=== PATIENT | female | born 2000 | race Caucasian/White ===

== ENCOUNTER 2019-05-12 16:14 | Emergency (ER) | payer OTHER ==
[~2019-05-12] VITALS: Ht 172.7 cm; Wt 72.6 kg
[~2019-05-12 16:14] MED LIST: LO LOESTRIN FE1 EACH PO; NORTRIPTYLINE H50 MG PO
--- OUTSIDE RECORDS SUMMARY | 2019-05-12 16:18 | XMS REPORT | Summary of Care ---
Author Author Sara Torres M.A. Unknown Address [facility] Phone Unavailable Care Team Providers Care Training Personnel Supervisor Name Role Phone YOANDY Junior, FABIAN Unavailable Unavailable YOANDY CHAVEZ, FABIAN LEE Unavailable Unavailable Unavailable Unavailable Functional Status Name Dates Details Functional status health issues are not documented Status: Name Dates Details Cognitive status health issues are not documented Status: Problems Name Dates Details Encounter to establish care (V65.8, Z76.89) Status: Active Screening for diabetes mellitus (V77.1, Z13.1) Status: Active Screening for thyroid disorder (V77.0, Z13.29) Status: Active Flu vaccine need (V04.81, Z23) Status: Active Overweight (BMI 25.0-29.9) Status: Active Depression (311, F32.9) Status: Active PCOS (polycystic ovarian syndrome) (256.4, E28.2) Status: Active Oligomenorrhea (626.1, N91.5) Status: Active Medications Name Dates Details medroxyPROGESTERone Acetate 10 MG Oral Tablet TAKE 1 tab every day for 10 days. Quantity: 10 FABIAN PITT M.D. * Start : 29-Jan-2019 Active Tri-Legest Fe 1-20/1-30/1-35 MG-MCG Oral Tablet TAKE 1 TABLET DAILY DIRECTED. * Quantity: 1 Refills: 3 CAROLYNN PITT M.D.IKA * Start : 29-Jan-2019 Active 28 Tablet Pack Allergies and Adverse Reactions Name Dates Details Bactrim TABS (Allergy) Status: Active Past Medical History Name Dates Details History of PCOS (V13.29, Z87.42) Status: Resolved Procedures Procedure Dates Details History of Tympanoplasty Completed Immunization Name Dates Details Fluzone Quadrivalent 0.5 ML Intramuscular Suspension Lot #: [id number] on: 09-Jan-2017 Family History Name Dates Details Family history of diabetes mellitus (V18.0, Z83.3) Status: Active Family history of hypertension (V17.49, Z82.49) Status: Active Name Dates Details Family history of diabetes mellitus (V18.0, Z83.3) Status: Active Social History Name Dates Details - Status: Name Dates Details Never smoked tobacco (finding) Vital Signs Date Test Result Details [id number] Systolic blood pressure 120 mm[Hg] Status: Comments: Location: [facility]; Position: Sitting Diastolic blood pressure 70 mm[Hg] Status: Comments: Location: [facility]; Position: Sitting Body height 67 in Status: Weight 203 lb Status: Body mass index (BMI) [Ratio] 31.79 kg/m2 Status: Body surface area Derived from formula 2.03 m2 Status: Results Date Description Value Details Results not documented Plan of Care Name Dates Details Planned Observations Planned Goals not documented Instructions Name Dates Details Instructions not documented Encounters Appointment; FABIAN PITT M.D. Encounter Diagnosis: Problem not documented On: 25-Oct-2017 14:30 Appointment; FABIAN PITT M.D. Encounter Diagnosis: Problem not documented On: 27-Dec-2017 10:00 Appointment; FABIAN PITT M.D. Encounter Diagnosis: Problem not documented On: 29-Jan-2019 13:45 Appointment; FABIAN PITT M.D. Encounter Diagnosis: Problem not documented On: 16-Apr-2019 15:00
--- OUTSIDE RECORDS SUMMARY | 2019-05-12 16:18 | XMS REPORT | Summary of Care ---
Author Author YOANDY Junior, FABIAN Organization Unknown Address Unknown Phone Unavailable Care Team Providers Care Engraver Ornamental Design Name Role Phone FABIAN PITT M.D. Unavailable Unavailable FABIAN PITT MD Unavailable Unavailable Unavailable Unavailable Functional Status Name [...] (V04.81, Z23) Status: Active Overweight (BMI 25.0-29.9) (278.02, E66.3) Status: Active Depression (311, F32.9) Status: Active PCOS (polycystic ovarian syndrome) (256.4, E28.2) Status: Active Oligomenorrhea (626.1, N91.5) Status: Active Medications Name Dates Details Tri-Sprintec 0.18/0.215/0.25 MG-35 MCG Oral Tablet TAKE 1 TABLET BY MOUTH ONCE DAILY Quantity: 28 CROSS M.D., FABIAN * Start : 25-Oct-2017 Active 28 Tablet Pack medroxyPROGESTERone Acetate 10 MG Oral Tablet TAKE 1 tab every day for 10 days. * Quantity: 10 Refills: 0 YOANDY M.D.FABIAN * Start : 29-Jan-2019 Active Tri-Legest Fe 1-20/1-30/1-35 MG-MCG Oral Tablet TAKE 1 TABLET DAILY DIRECTED. * Quantity: 1 Refills: 3 CROSS M.D., FABIAN * Start : 29-Jan-2019 Active 28 Tablet Pack Allergies and Adverse Reactions Name Dates Details Bactrim TABS (Allergy) Status: Active Past Medical History Name Dates Details History of PCOS (V13.29, Z87.42) Status: Resolved Procedures Procedure Dates Details History of Tympanoplasty Completed Immunization Name Dates Details Fluzone Quadrivalent 0.5 ML Intramuscular Suspension Lot #: [id number] on: 09-Jan-2017 Family History Name Dates Details Family history of diabetes mellitus (V18.0, Z83.3) Status: Active Family history of hypertension (V17.49, Z82.49) Status: Active Name Dates Details Family history of diabetes mellitus (V18.0, Z83.3) Status: Active Social History Name Dates Details - Status: Name Dates Details Never smoker Vital Signs Date Test Result Details [id number] BP Systolic 116 mm[Hg] Status: Comments: Location: [facility]; Position: Sitting BP Diastolic 80 mm[Hg] Status: Comments: Location: [facility]; Position: Sitting Height 67 in Status: Weight 201 lb Status: Body Mass Index Calculated 31.48 kg/m2 Status: Body Surface Area Calculated 2.03 m2 Status: Temperature 98.1 f Status: Comments: Method: Oral Results Date Description Value Details Results not documented Plan of Care Name Dates Details Planned Observations Planned Goals not documented Planned Encounters Appointment; FABIAN PITT M.D. On: 16-Apr-2019 15:00 Interventions Provided Medication Changes* medroxyPROGESTERone Acetate 10 MG Oral Tablet - Start * Tri-Legest Fe 1-20/1-30/1-35 MG-MCG Oral Tablet - Start Discussion/Summary* Oligomenorrhea * -progesterone challenge * -then start OCP diff RX sent to pharmacy * RTC for f/u. Instructions Name Dates Details Instructions not documented Encounters Appointment; FABIAN PITT M.D. Encounter Diagnosis: Problem not documented On: 25-Oct-2017 14:30 Appointment; FABIAN PITT M.D. Encounter Diagnosis: Problem not documented On: 27-Dec-2017 10:00 Appointment; FABIAN PITT M.D. Encounter Diagnosis: Problem not documented On: 29-Jan-2019 13:45
--- OUTSIDE RECORDS SUMMARY | 2019-05-12 16:18 | XMS REPORT | Summary of Care ---
Author Author YOANDY Junior, FABIAN Organization Unknown Address Unknown Phone Unavailable Care Team Providers Care Copy Supervisor Name Role Phone FABIAN PITT M.D. Unavailable [...] Status: Active Depression (311, F32.9) Status: Active Oligomenorrhea (626.1, N91.5) Status: Active PCOS (polycystic ovarian syndrome) (256.4, E28.2) Status: Active Medications Name Dates Details medroxyPROGESTERone Acetate 10 MG Oral Tablet TAKE 1 tab every day for 10 days. Quantity: 10 FABIAN PITT M.D. * Start : 29-Jan-2019 Active Tri-Legest Fe 1-20/1-30/1-35 MG-MCG Oral Tablet TAKE 1 TABLET DAILY DIRECTED. * Quantity: 1 Refills: 3 FABIAN PITT M.D. * Start : 29-Jan-2019 Active 28 Tablet Pack Allergies and Adverse Reactions Name Dates Details Bactrim TABS (Allergy) Status: Active Past Medical History Name Dates Details History of PCOS (V13.29, Z87.42) Status: Resolved Procedures Procedure Dates Details History of Tympanoplasty Completed Immunization Name Dates Details Fluzone Quadrivalent 0.5 ML Intramuscular Suspension Lot #: [id number] on: 09-Jan-2017 Family History Name Dates Details Family history of diabetes mellitus (V18.0, Z83.3) Status: Active Family history of hypertension (V17.49, Z82.49) Status: Active Name Dates Details Family history of diabetes mellitus (V18.0, Z83.3) Status: Active Social History Name Dates Details - Status: Name Dates Details Never smoked tobacco (finding) Vital Signs Date Test Result Details [id number] Systolic blood pressure 120 mm[Hg] Status: Comments: Location: [facility]; Position: Sitting Diastolic blood pressure 70 mm[Hg] Status: Comments: Location: [facility]; Position: Sitting Body height 67 in Status: Weight 203 lb Status: Body mass index (BMI) [Ratio] 31.79 kg/m2 Status: Body surface area Derived from formula 2.03 m2 Status: Results Date Description Value Details Results not documented Plan of Care Name Dates Details Planned Observations Planned Goals not documented Planned Encounters Appointment; FABIAN PITT M.D. On: 02-Jul-2019 15:00 Interventions Provided Discussion/Summary* 1. Will cont OCPs in continuous fashion for 3 months at a time * RTC in 3 months to re evaluate. Instructions Name Dates Details Instructions not documented Encounters Appointment; FABIAN PITT M.D. Encounter Diagnosis: Problem not documented On: 25-Oct-2017 14:30 Appointment; FABIAN PITT M.D. Encounter Diagnosis: Problem not documented On: 27-Dec-2017 10:00 Appointment; FABIAN PITT M.D. Encounter Diagnosis: Problem not documented On: 29-Jan-2019 13:45 Appointment; FABIAN PITT M.D. Encounter Diagnosis: Problem not documented On: 16-Apr-2019 15:00
[2019-05-12] MEDS ORDERED: SODIUM CHLORIDE 0.9% 1000ML 1,000 ML IV STA ×2 (16:37→18:46)
[2019-05-12] MEDS ORDERED: ONDANSETRON HCL INJ 2MG/ML 2ML 2 MG/ML VIAL IV STA (16:37)
[2019-05-12 17:47] LABS: BASOPHILS % 0.2 % (0.0-1.0); HEMATOCRIT 42.3 % (34.2-44.1); HEMOGLOBIN 14.8 g/dL (12.0-16.0); LYMPHOCYTES # (AUTO) 0.6 (1.0-3.2); LYMPHOCYTES % 5.7 % (18.0-39.1); MEAN CORPUSCULAR HEMOGLOBIN 29.3 pg (28-32); MEAN CORPUSCULAR VOLUME 83.8 fL (81-99); MONOCYTES # (AUTO) 0.4 (0.2-0.8); MONOCYTES % 3.5 % (4.4-11.3); NEUTROPHILS % 90.2 % (38.7-80.0); PLATELET COUNT 288 x10e3/uL (140-360); RED BLOOD COUNT 5.05 x10e6/uL (3.6-5.1); RED CELL DISTRIBUTION WIDTH 12.7 % (11.7-14.4)
[2019-05-12 18:04] LABS: ALANINE AMINOTRANSFERASE 20 IU/L (0-55); ALBUMIN 3.6 g/dL (3.5-5.0); ALBUMIN/GLOBULIN RATIO 0.9 (0.8-2.0); ALKALINE PHOSPHATASE 64 IU/L (40-150); ANION GAP 13.8 mmol/L (8-16); BLOOD UREA NITROGEN 13 mg/dL (7-26); BUN/CREATININE RATIO 17 (6-25); CALCIUM 9.1 mg/dL (8.4-10.2); CARBON DIOXIDE 20 mmol/L (22-29); CHLORIDE 110 mmol/L (98-107); CREATININE, SERUM 0.76 mg/dL (0.57-1.11); EST GLOMERULAR FILTRATION RATE > 60 ML/MIN (60-); GLUCOSE 125 mg/dL (74-118); POTASSIUM 3.8 mmol/L (3.5-5.1); SODIUM 140 mmol/L (136-145)
[2019-05-12 18:36] LABS: BILIRUBIN,URINE NEGATIVE (NEGATIVE); CLARITY,URINE HAZY (CLEAR); COLOR,URINE YELLOW (YELLOW); KETONES,URINE 1+ (NEGATIVE); LEUKOCYTE ESTERASE ,URINE NEGATIVE (NEGATIVE); NITRITE,URINE NEGATIVE (NEGATIVE); PROTEIN,URINE DIPSTICK NEGATIVE (NEGATIVE); URINE UROBILINOGEN 0.2 mg/dL (0.2 - 1)
[2019-05-12 18:41] LABS: BACTERIA,URINE FEW /HPF; EPITHELIAL CELLS,URINE FEW /LPF; WBC,URINE (MAN) 0-5 /HPF (0-5)
[2019-05-12] MEDS ORDERED: PROMETHAZINE 12.5MG/ NACL 0.9% 12.5 MG/50 ML BAG IV ONE (18:45)
[2019-06-17] MEDS ORDERED: [UNRECOGNIZED DRUG - OTHER] PO (12:28)
== END 2019-05-12 20:14 | disposition home or self-care (01) ==
LOC: ER 16:14
DX: E86.0 Dehydration (principal); R11.2 Nausea with vomiting, unspecified; R19.7 Diarrhea, unspecified; Z88.2 Allergy status to sulfonamides; Z88.8 Allergy status to other drugs, medicaments and biological substances; Z83.3 Family history of diabetes mellitus; Z82.49 Family history of ischemic heart disease and other diseases of the circulatory system
CPT/HCPCS: 36415; 80053; 81001; 81025; 85025; 99284; J2405; J2550; J7030

== ENCOUNTER 2019-05-13 01:58 | Inpatient (IN) | payer OTHER ==
[~2019-05-13] VITALS: Ht 172.7 cm; Wt 72.6 kg
[2019-05-13] MEDS ORDERED: ONDANSETRON HCL INJ 2MG/ML 2ML 2 MG/ML VIAL IV STA (02:02)
[2019-05-13] MEDS ORDERED: MORPHINE SULFATE INJ 4 MG/ML INJ 1ML IV STA (02:02)
[2019-05-13] MEDS ORDERED: SODIUM CHLORIDE 0.9% 1000ML 1,000 ML IV STA (02:02)
[2019-05-13] MEDS ORDERED: ACETAMINOPHEN 325 MG TAB PO ONE (02:15)
[2019-05-13] MEDS ORDERED: DIATRIZOATE MEGL/DIATRIZOA SOD 30 ML BTL PO ONE (02:18)
[2019-05-13 02:44] LABS: BASOPHILS % 0.3 % (0.0-1.0); EOSINOPHILS # (AUTO) 0.1 (0.0-0.4); EOSINOPHILS % 1.8 % (0.0-6.0); HEMATOCRIT 43.2 % (34.2-44.1); HEMOGLOBIN 14.5 g/dL (12.0-16.0); LYMPHOCYTES # (AUTO) 0.9 (1.0-3.2); LYMPHOCYTES % 11.7 % (18.0-39.1); MEAN CORPUSCULAR HEMOGLOBIN 28.7 pg (28-32); MEAN CORPUSCULAR HGB CONC 33.6 g/dL (31-35); MEAN CORPUSCULAR VOLUME 85.5 fL (81-99); MONOCYTES # (AUTO) 0.4 (0.2-0.8); MONOCYTES % 5.8 % (4.4-11.3); NEUTROPHILS # (AUTO) 6.1 (2.1-6.9); NEUTROPHILS % 80.1 % (38.7-80.0); PLATELET COUNT 286 x10e3/uL (140-360); RED BLOOD COUNT 5.05 x10e6/uL (3.6-5.1); RED CELL DISTRIBUTION WIDTH 12.8 % (11.7-14.4)
[2019-05-13 02:44] LABS: BILIRUBIN,URINE NEGATIVE (NEGATIVE); CLARITY,URINE CLOUDY (CLEAR); COLOR,URINE YELLOW (YELLOW); KETONES,URINE 2+ (NEGATIVE); LEUKOCYTE ESTERASE ,URINE NEGATIVE (NEGATIVE); NITRITE,URINE NEGATIVE (NEGATIVE); PROTEIN,URINE DIPSTICK NEGATIVE (NEGATIVE); URINE UROBILINOGEN 0.2 mg/dL (0.2 - 1)
[2019-05-13 02:55] LABS: ALANINE AMINOTRANSFERASE 22 IU/L (0-55); ALBUMIN 3.4 g/dL (3.5-5.0); ALKALINE PHOSPHATASE 57 IU/L (40-150); ANION GAP 12.8 mmol/L (8-16); BLOOD UREA NITROGEN 11 mg/dL (7-26); BUN/CREATININE RATIO 13 (6-25); CARBON DIOXIDE 22 mmol/L (22-29); CHLORIDE 110 mmol/L (98-107); CREATININE, SERUM 0.82 mg/dL (0.57-1.11); EST GLOMERULAR FILTRATION RATE > 60 ML/MIN (60-); GLUCOSE 112 mg/dL (74-118); POTASSIUM 3.8 mmol/L (3.5-5.1); SODIUM 141 mmol/L (136-145)
[2019-05-13 02:56] LABS: LIPASE < 4 U/L (8-78)
[2019-05-13] MEDS ORDERED: IOPAMIDOL 370 MG/ML 200 ML INFUS..BTL INJ ONE (03:28)
[2019-05-13 03:29] LABS: BACTERIA,URINE MODERATE /HPF; EPITHELIAL CELLS,URINE FEW /LPF; RBC,URINE 21-50 /HPF (0-5); TRANSITIONAL EPI CELLS,URINE FEW
[2019-05-13] MEDS ORDERED: SODIUM CHLORIDE 0.9% 50ML 50 ML ONE (03:29)
[2019-05-13 03:30] LABS: MUCUS,URINE FEW (RARE)
[2019-05-13 03:56] LABS: PREGNANCY TEST, URINE NEGATIVE (NEGATIVE)
--- NOTE | 2019-05-13 04:00 | NUR ---
PT RESTING, VITAL SIGNS STABLE, PT VOICES NO COMPLAINTS AT THIS TIME
--- NOTE | 2019-05-13 05:00 | NUR ---
PT UP TO RESTROOM, VITAL SIGNS STABLE, PT STATED PAIN AND NAUSEA HAVE SUBSIDED, PT VOICES NO COMPLAINTS AT THIS TIME
[2019-05-13 05:29] LABS: STREPTOCOCCUS GRP A ANTIGEN NEGATIVE (NEGATIVE)
--- NOTE | 2019-05-13 05:33 | Diagnostic Imaging Report ---
EXAM: CT Chest, Abdomen and Pelvis WITH contrast INDICATION: Cough, nausea, fever ,, vomiting COMPARISON: None. TECHNIQUE: Chest, abdomen and pelvis were scanned utilizing a multidetector helical scanner from the lung apex to the pubic symphysis after administration of IV contrast. Coronal and sagittal reformations were obtained. Routine protocol was performed. Scan was performed when during portal venous phase. IV CONTRAST: 100 mL of Isovue 370 ORAL CONTRAST: Gastrografin... COMPLICATIONS: None RADIATION DOSE: Total DLP: 1063 mGy*cm Estimated effective dose: (DLP x 0.015 x size factor) mSv CTDIvol has been reviewed. It is below the limits set by the Radiation Protocol Committee (RPC). Dose modulation, iterative reconstruction, and/or weight based adjustment of the mA/kV was utilized to reduce the radiation dose to as low as reasonably achievable. FINDINGS: LINES and TUBES: None. LUNGS AND AIRWAYS: The lungs are unremarkable. Airways are normal. PLEURA: The pleural spaces are clear. HEART AND MEDIASTINUM: The thyroid gland is normal. No mediastinal, hilar or axillary lymphadenopathy. The heart is normal in size. There is no pericardial effusion. HEPATOBILIARY: No focal hepatic lesions. No biliary ductal dilation. GALLBLADDER: No radio-opaque stones or sludge. No wall thickening. SPLEEN: No splenomegaly. PANCREAS: No focal masses or ductal dilatation. ADRENALS: No adrenal nodules KIDNEYS/URETERS: Kidneys enhance symmetrically. No hydronephrosis. No solid mass lesions. Mild prominence of the right renal superior pole minor calyx. No stones. GI TRACT: No abnormal distention, wall thickening, or evidence of bowel obstruction. Liquid stool within the right and transverse colon. Appendix is normal. PELVIC ORGANS/BLADDER: Unremarkable. LYMPH NODES: No suspicious lymphadenopathy. Mild prominence of mesenteric lymph nodes. VESSELS: Unremarkable. PERITONEUM / RETROPERITONEUM: No free air or fluid. BONES: Unremarkable. SOFT TISSUES: Unremarkable. IMPRESSION: Findings which can be seen with enterocolitis. Signed by: Arley Olsen DO on 05/13/2019 5:29 AM
[2019-05-13 05:43] LABS: INFLUENZAE A&B ANTIGEN (RAPID) NEGATIVE (NEGATIVE)
[2019-05-13] MEDS ORDERED: MORPHINE SULFATE 2 MG/ML SYR 1ML IV PRN (05:45)
[2019-05-13] MEDS: CIPROFLOXACIN 400 MG/D5W 200ML 200 ML IV SCH ×2 (06:05→18:10)
--- NOTE | 2019-05-13 06:56 | NUR ---
REPORT TO OLIVER JIMENEZ ALL QUESTIONS ANSWERED
--- OUTSIDE RECORDS SUMMARY | 2019-05-13 07:00 | XMS REPORT ---
Author Author [facility] Address Unknown Phone Unavailable Care Team Providers Care Door Serviceman Name Role Phone MAYURI FARRAH Unavailable Unavailable Problems This patient has no known problems. Allergies, Adverse Reactions, Alerts This patient has no known allergies or adverse reactions. Medications This patient has no known medications. Results Test Description Test Time Test Comments Text Results Atomic Results Result Comments CT CHEST W 2019-05-13 04:57:00 [facility] [address] [address] Patient Name: SARMAD BROOKE MR #: [id number] : 2000 Age/Sex: 18/F Req #: [id number] Adm Physician: Ordered by: FARRAH MESSINA DO Report #: [id number] Location: ER Room/Bed: Procedure: [id number] CT/CT CHEST W Exam Date: 05/13/19 Exam Time: 0406 REPORT STATUS: Signed EXAM: CT Chest, Abdomen and Pelvis WITH contrast INDICATION: Cough, nausea, fever ,, vomiting COMPARISON: None. TECHNIQUE: Chest, abdomen and pelvis were scanned utilizing a multidetector helical scanner from the lung apex to the pubic symphysis after administration of IV contrast. Coronal and sagittal reformations were obtained. Routine protocol was performed. Scan was performed when during portal venous phase. IV CONTRAST: 100 mL of Isovue 370 ORAL CONTRAST: Gastrografin... COMPLICATIONS: None RADIATION DOSE: Total DLP: 1063 mGy*cm Estimated effective dose: (DLP x 0.015 x size factor) mSv CTDIvol has been reviewed. It is below the limits set by the Radiation Protocol Committee (RPC). Dose modulation, iterative reconstruction, and/or weight based adjustment of the mA/kV was utilized to reduce the radiation dose to as low as reasonably achievable. FINDINGS: LINES and TUBES: None. LUNGS AND AIRWAYS: The lungs are unremarkable. Airways are normal. PLEURA: The pleural spaces are clear. HEART AND MEDIASTINUM: The thyroid gland is normal. No mediastinal, hilar or axillary lymphadenopathy. The heart is normal in size. There is no pericardial effusion. HEPATOBILIARY: No focal hepatic lesions. No biliary ductal dilation. GALLBLADDER: No radio-opaque stones or sludge. No wall thickening. SPLEEN: No splenomegaly. PANCREAS: No focal masses or ductal dilatation. ADRENALS: No adrenal nodules KIDNEYS/URETERS: Kidneys enhance symmetrically. No hydronephrosis. No solid mass lesions. Mild prominence of the right renal superior pole minor calyx. No stones. GI TRACT: No abnormal distention, wall thickening, or evidence of bowel obstruction. Liquid stool within the right and transverse colon. Appendix is normal. PELVIC ORGANS/BLADDER: Unremarkable. LYMPH NODES: No suspicious lymphadenopathy. Mild prominence of mesenteric lymph nodes. VESSELS: Unremarkable. PERITONEUM / RETROPERITONEUM: No free air or fluid. BONES: Unremarkable. SOFT TISSUES: Unremarkable. IMPRESSION: Findings which can be seen with enterocolitis. Signed by: Arley Olsen DO on 05/13/2019 5:29 AM Dictated By: ARLEY OLSEN DO 8 Transcribed By: ROBBIE on 05/13/19528 COPY TO: FARRAH MESSINA DO CT ABDOMEN/PELVIS W 2019-05-13 04:57:00 [address] [address] Patient Name: SARMAD BROOKE MR #: [id number] : 2000 Age/Sex: 18/F Req #: [id number] Adm Physician: Ordered by: FARRAH MESSINA DO Report #: [id number] Location: ER Room/Bed: Procedure: [id number] CT/CT ABDOMEN/PELVIS W Exam Date: 05/13/19 Exam Time: 040 REPORT STATUS: Signed EXAM: CT Chest, Abdomen and Pelvis WITH contrast I NDICATION: Cough, nausea, fever ,, vomiting COMPARISON: None. TECHNIQUE: Chest, abdomen and pelvis were scanned utilizing a multidetector helical scanner from the lung apex to the pubic symphysis after administration of IV contrast. Coronal and sagittal reformations were obtained. Routine protocol was performed. Scan was performed when during portal venous phase. IV CONTRAST: 100 mL of Isovue 370 ORAL CONTRAST: Gastrografin... COMPLICATIONS: None RADIATION DOSE: Total DLP: 1063 mGy*cm Estimated effective dose: (DLP x 0.015 x size factor) mSv CTDIvol has been reviewed. It is below the limits set by the Radiation Protocol Committee (RPC). Dose modulation, iterative reconstruction, and/or weight based adjustment of the mA/kV was utilized to reduce the radiation dose to as low as reasonably achievable. FINDINGS: LINES and TUBES: None. LUNGS AND AIRWAYS: The lungs are unremarkable. Airways are normal. PLEURA: The pleural spaces are clear. HEART AND MEDIASTINUM: The thyroid gland is normal. No mediastinal, hilar or axillary lymphadenopathy. The heart is normal in size. There is no pericardial effusion. HEPATOBILIARY: No focal hepatic lesions. No biliary ductal dilation. GALLBLADDER: No radio-opaque stones or sludge. No wall thickening. SPLEEN: No splenomegal y. PANCREAS: No focal masses or ductal dilatation. ADRENALS: No adrenal nodules KIDNEYS/URETERS: Kidneys enhance symmetrically. No hydronephrosis. No solid mass lesions. Mild prominence of the right renal superior pole minor calyx. No stones. GI TRACT: No abnormal distention, wall thickening, or evidence of bowel obstruction. Liquid stool within the right and transverse colon. Appendix is normal. PELVIC ORGANS/BLADDER: Unremarkable. LYMPH NODES: No suspicious lymphadenopathy. Mild prominence of mesenteric lymph nodes. VESSELS: Unremarkable. PERITONEUM / RETROPERITONEUM: No free air or fluid. BONES: Unremarkable. SOFT TISSUES: Unremarkable.
[2019-05-13] MEDS: SODIUM CHLORIDE 0.9% 1000ML 1,000 ML IV SCH ×3 (07:45→21:39)
[2019-05-13] MEDS: ONDANSETRON HCL INJ 2MG/ML 2ML 2 MG/ML VIAL IV PRN ×2 (07:49→20:32)
--- NOTE | 2019-05-13 08:00 | NUR ---
PT TO THE FLOOR FROM ER. VITALS WNL. PT DENIES NEEDS AT THIS TIME.
[2019-05-13 09:14] LABS: BAND NEUTROPHILS % (MANUAL) 1 %; LYMPHOCYTES % (MANUAL) 17 % (19-48); MONOCYTES % (MANUAL) 3 % (3.4-9.0); NEUTROPHILS % (MANUAL) 78 % (40-74)
[2019-05-13 09:15] LABS: PLATELET ESTIMATE ADEQUATE; PLATELET MORPHOLOGY COMMENT NORMAL; RBC MORPHOLOGY COMMENT NORMAL
[2019-05-13 09:18] VITALS: BP 109/63
[2019-05-13 12:41] VITALS: BP 87/46
[2019-05-13 13:00] VITALS: BP 136/58
[2019-05-13 17:33] VITALS: BP 107/55
--- NOTE | 2019-05-13 19:10 | NUR ---
BEDSIDE SHIFT REPORT RECEIVED FROM DAY RN. PT IS ALERT AND ORIENTED X3. 20G PIV IN RT AC. SITE HEALTHY. RESPIRATIONS EVEN AND UNLABORED. PT DENIES HAVING DIARRHEA AT THIS TIME. PT IS HAVING NAUSEA INTERMITENTLY. WILL GIVE ZOFRAN PRN. CALL LIGHT WITHIN REACH. BED LOCKED AND IN LOW POSITION. PT REMAINS ON DROPLET PRECAUTIONS. PT DENIES FEVER, COUGH OR SOB. PT LYING ON HER SIDE IN BED. PT VOIDING VIA BR WITHOUT DIFFICULTY.
[2019-05-13 21:00] VITALS: BP_SYST 102; BP_SYST 104; BP_DIAS 53; BP_DIAS 59
[2019-05-13 21:58] VITALS: BP 102/53
[2019-05-14] VITALS (7 sets, daily range): BP systolic 89–109; BP diastolic 48–59
[2019-05-14] MEDS: SODIUM CHLORIDE 0.9% 1000ML 1,000 ML IV SCH ×3 (01:00→20:52)
[2019-05-14] MEDS: ONDANSETRON HCL INJ 2MG/ML 2ML 2 MG/ML VIAL IV PRN ×4 (02:07→22:23)
--- NOTE | 2019-05-14 03:07 | NUR ---
PT C/O OF NAUSEA EARLIER . ZOFRAN GIVEN AT 0206. NAUSEA DECREASE. WILL CONTINUE TO MONITOR.
[2019-05-14] MEDS: CIPROFLOXACIN 400 MG/D5W 200ML 200 ML IV SCH ×2 (05:34→18:17)
[2019-05-14 06:49] LABS: BASOPHILS % 0.3 % (0.0-1.0); EOSINOPHILS # (AUTO) 0.1 (0.0-0.4); EOSINOPHILS % 1.8 % (0.0-6.0); HEMATOCRIT 36.4 % (34.2-44.1); HEMOGLOBIN 12.2 g/dL (12.0-16.0); LYMPHOCYTES # (AUTO) 1.5 (1.0-3.2); LYMPHOCYTES % 24.1 % (18.0-39.1); MEAN CORPUSCULAR HGB CONC 33.5 g/dL (31-35); MEAN CORPUSCULAR VOLUME 86.5 fL (81-99); MONOCYTES # (AUTO) 0.6 (0.2-0.8); MONOCYTES % 9.5 % (4.4-11.3); PLATELET COUNT 213 x10e3/uL (140-360); RED BLOOD COUNT 4.21 x10e6/uL (3.6-5.1); RED CELL DISTRIBUTION WIDTH 12.9 % (11.7-14.4)
--- NOTE | 2019-05-14 07:00 | NUR ---
BEDSIDE SHIFT REPORT RECEIVED FROM CARDIAC EXERCISE PHYSIOLOGIST RN. PT DENIES NEEDS AT THIS TIME.
[2019-05-14 07:12] LABS: ALANINE AMINOTRANSFERASE 16 IU/L (0-55); ALBUMIN 2.9 g/dL (3.5-5.0); ALBUMIN/GLOBULIN RATIO 1.1 (0.8-2.0); ALKALINE PHOSPHATASE 42 IU/L (40-150); ANION GAP 7.4 mmol/L (8-16); BLOOD UREA NITROGEN 5 mg/dL (7-26); BUN/CREATININE RATIO 7 (6-25); CALCIUM 7.7 mg/dL (8.4-10.2); CARBON DIOXIDE 23 mmol/L (22-29); CHLORIDE 112 mmol/L (98-107); CREATININE, SERUM 0.74 mg/dL (0.57-1.11); EST GLOMERULAR FILTRATION RATE > 60 ML/MIN (60-); GLUCOSE 93 mg/dL (74-118); POTASSIUM 3.4 mmol/L (3.5-5.1); SODIUM 139 mmol/L (136-145)
[2019-05-14] MEDS: ACETAMINOPHEN 325 MG TAB PO PRN (13:35)
--- NOTE | 2019-05-14 19:08 | NUR ---
BEDSIDE REPORT RECEIVED FROM DAY RN. PT IS ALERT AND ORIENTED X3. RESPIRATIONS ARE EVEN AND UNLABORED. PT REPORTS NAUSEATED WHEN TRY TO DRINK AND EAT. PT TAKING ZOFRAN FOR NAUSEA. PT VOIDING WITHOUT DIFFICULTY. NO DIARRHEA REPORTED. 20 G PIV IN RT AC. SITE HEALTHY. PT RESTING IN BED LOOKING AT HER PHONE. CALL LIGHT WITHIN REACH. BED IN LOW POSITION.
--- NOTE | 2019-05-14 23:30 | NUR ---
DR CRABTREE HERE TO SEE PT. REPORT NAUSEA WHEN EAT. PT TO HAVE EGD IN AM. PT NPO AFTER 12 MN.
[2019-05-15] VITALS (8 sets, daily range): BP systolic 88–104; BP diastolic 51–64
--- NOTE | 2019-05-15 03:30 | NUR ---
IV LEAKING. IV D/C WITH CATHETER INTACT. PRESSURE DRESSING TO OLD IV SITE. 20 G IV STARTED IN RT FOREARM. PT TOLERATED PROCEDURE WELL.CONSENT FOR EGD SIGNED.
[2019-05-15] MEDS: SODIUM CHLORIDE 0.9% 1000ML 1,000 ML IV SCH ×3 (04:59→22:14)
[2019-05-15] MEDS: CIPROFLOXACIN 400 MG/D5W 200ML 200 ML IV SCH ×2 (05:18→19:03)
--- NOTE | 2019-05-15 06:13 | NUR ---
PT CALLED NURSE TO REPORT ARM WITH IV PINK WITHOUT ITCHING. CIPRO INFUSING. CIPRO STOPPED.IV FLUSHES EASILY. NS INFUSING AT 125ML/HR. WILL NOTIFY PHYSICIAN AND MONITOR IV SITE.
--- NOTE | 2019-05-15 07:00 | NUR ---
PINK ON RT FOREARM FADED. REPORTED STOPPED CIPRO TO DAY RN.
[2019-05-15] MEDS ORDERED: POTASSIUM CHLORIDE 20MEQ/100ML 200 ML IV ONE (08:15)
[2019-05-15] MEDS: METOCLOPRAMIDE HCL 10 MG/2ML VIAL IV SCH ×2 (12:11→17:30)
[2019-05-15] MEDS ORDERED: PANTOPRAZOLE 40 MG 10ML VIAL IV ONE (12:30)
--- NOTE | 2019-05-15 12:30 | NUR ---
Dr.Haddad Perdomo. aware of report from night nurse about pink discoloration upon cipro infusion. Per Dr.Haddad Perdomo. run antibiotic slower.
[2019-05-15] MEDS: ONDANSETRON HCL INJ 2MG/ML 2ML 2 MG/ML VIAL IV PRN (15:25)
--- NOTE | 2019-05-15 16:30 | Diagnostic Imaging Report ---
EXAM: US GALLBLADDER DATE: 05/15/2019 12:00 AM INDICATION: Abdominal pain COMPARISON: CT abdomen/pelvis from 05/13/2019 FINDINGS: The pancreas is partially obscured by prominent bowel gas. The visualized portion appears unremarkable. The liver is normal in size measuring 13.8 cm in length. Hepatic echogenicity is within normal limits. No focal hepatic abnormality is identified. The main portal vein is patent with antegrade flow and diameter of 1.0 cm, within normal limits. The gallbladder is unremarkable. There is no evidence for cholelithiasis, gallbladder wall thickening, or pericholecystic fluid. There is no intra or extrahepatic biliary ductal dilatation. The common bile duct measures 4 mm. Sonographic Jay's sign is negative. The right kidney is normal in size measuring 10.6 cm in length with normal cortical thickness and echogenicity. There is no evidence for solid renal mass, hydronephrosis, or shadowing calculi within the right kidney. The visualized portions of the IVC and aorta are within normal limits. There is no ascites visualized. IMPRESSION: Unremarkable right upper quadrant ultrasound examination. Signed by: Dr. Michael Lewis MD on 05/15/2019 4:27 PM
[2019-05-15] MEDS ORDERED: PROPOFOL IV EMULSION 10 MG/ML 20 ML VIAL ONE (17:49)
--- NOTE | 2019-05-15 19:09 | NUR ---
Report given to oncoming nurse. Resting in bed. No s/s of acute distress noted. Side rails upx2, call light within reach.
--- NOTE | 2019-05-15 19:20 | NUR ---
Patient received lying in bed. AAO x 4. Patient had no complaints of bed. Respirations even and non-labored. Safety measures in place. Patient instructed to call for assistance when needed. Call light within reach.
[2019-05-15] MEDS ORDERED: FENTANYL CITRATE/PF 100MCG/2 ML INJ ONE (19:47)
[2019-05-15] MEDS ORDERED: MIDAZOLAM HCL 2 MG/2 ML VIAL ONE (19:47)
[2019-05-15] MEDS: PANTOPRAZOLE 40 MG 10ML VIAL IV SCH (22:14)
[2019-05-16] VITALS (7 sets, daily range): BP systolic 91–110; BP diastolic 54–74
[2019-05-16] MEDS: METOCLOPRAMIDE HCL 10 MG/2ML VIAL IV SCH ×4 (01:55→17:47)
[2019-05-16] MEDS: SODIUM CHLORIDE 0.9% 1000ML 1,000 ML IV SCH ×3 (05:39→21:32)
[2019-05-16] MEDS: CIPROFLOXACIN 400 MG/D5W 200ML 200 ML IV SCH ×2 (06:15→17:47)
--- NOTE | 2019-05-16 07:00 | NUR ---
Patient resting comfortably. Walking rounds done. Bed-side shift report given to oncoming nurse regarding patient's status.
[2019-05-16] MEDS: ACETAMINOPHEN 325 MG TAB PO PRN (08:32)
[2019-05-16] MEDS: PANTOPRAZOLE 40 MG 10ML VIAL IV SCH ×2 (08:40→21:32)
--- NOTE | 2019-05-16 17:18 | Diagnostic Imaging Report ---
Hepatobiliary Scan with Gallbladder Ejection Fraction Clinical information: Nausea; epigastric and RUQ pain x3 days Technique: Following intravenous administration of 6.6 millicuries of Tc-99m mebrofenin, dynamic images of the abdomen in the anterior projection were obtained through 30 minutes. Sincalide (CCK analog) 1.5 micrograms was administered intravenously over 30 minutes with additional imaging for determination of gallbladder ejection fraction. Discussion: Perfusion of the liver is normal. Extraction of tracer by the liver parenchyma is normal. Tracer appears promptly within the biliary tract. The gallbladder begins to fill by 15 minutes post injection of tracer and fills adequately. Tracer is seen in the small bowel during the sincalide infusion. The gallbladder ejection fraction with sincalide is 6% (normal greater than 40%). Impression: 1. Filling of the gallbladder excludes acute cystic duct obstruction/acute cholecystitis. 2. The decreased gallbladder ejection fraction of 6% supports the clinical diagnosis of chronic cholecystitis/gallbladder dyskinesia. Signed by: Dr. Tereza Mays M.D. on 05/16/2019 5:15 PM
--- NOTE | 2019-05-16 19:35 | NUR ---
Patient received lying in bed. AAO x 4. No acute distress noted. Bed locked and in lowest position. Bed rails up x 2. Patient instructed to call for assistance when needed. Call light within reach.
[2019-05-17] MEDS: METOCLOPRAMIDE HCL 10 MG/2ML VIAL IV SCH ×3 (01:00→12:53)
[2019-05-17 01:18] VITALS: BP 109/76
[2019-05-17] MEDS: SODIUM CHLORIDE 0.9% 1000ML 1,000 ML IV SCH ×2 (05:39→12:57)
[2019-05-17 05:44] VITALS: BP 113/62
[2019-05-17] MEDS: CIPROFLOXACIN 400 MG/D5W 200ML 200 ML IV SCH (06:22)
--- NOTE | 2019-05-17 07:00 | NUR ---
BEDSIDE SHIFT REPORT RECEIVED FROM THE STAFF COMMAND AND CONTROL OFFICER RN. CALL LIGHT WITH IN EASY REACH. BED IS LOW AND LOCKED. SIDE RAILS X2. INSTRUCTED PT TO USE CALL LIGHT FOR ALL THE NEEDS. EDUCATED PT ABOUT FALL PRECAUTIONS. PT VERBALIZED UNDERSTANDING. PT DENIES NEEDS AT THIS TIME.
--- NOTE | 2019-05-17 07:00 | NUR ---
Shift report given to oncoming nurse.
[2019-05-17 08:00] VITALS: BP 92/55
[2019-05-17 08:17] VITALS: BP 92/55
[2019-05-17] MEDS: PANTOPRAZOLE 40 MG 10ML VIAL IV SCH (10:00)
[2019-05-17 11:58] VITALS: BP 124/74
[2019-05-17] MEDS ORDERED: POTASSIUM CHLORIDE 10MEQ EA PO ONE (13:50)
[2019-05-17] MEDS ORDERED: PANTOPRAZOLE SO40 MG PO (13:51)
--- NOTE | 2019-05-17 14:15 | NUR ---
PT DISCHARGED HOME SAFELY WITH FAMILY MEMBER. IV REMOVED, TIP INTACT. DRESSING APPLIED. RX GIVEN. DISCHARGE INSTRUCTIONS GIVEN AND PATIENT VERBALIZED UNDERSTANDING. PT ESCORTED TO THE PRIVATE AUTO AT THE FRONT ENTRANCE. PT DENIED FURTHER NEEDS.
[2019-06-17] MEDS ORDERED: [UNRECOGNIZED DRUG - OTHER] PO (12:28)
== END 2019-05-17 14:32 | disposition home or self-care (01) | DRG 392 ==
LOC: ER 01:58 → ERHOLD 06:58 → MED/SURG2 08:09 → OBSVTOIN 05-14 11:38
PROC: 0DB68ZX Excision of Stomach, Via Natural or Artificial Opening Endoscopic, Diagnostic (ICD-10-PCS; principal; 2019-05-15 12:30)
DX: K52.9 Noninfective gastroenteritis and colitis, unspecified (principal); K20.9 Esophagitis, unspecified; E86.0 Dehydration; K29.70 Gastritis, unspecified, without bleeding; E87.6 Hypokalemia; K21.9 Gastro-esophageal reflux disease without esophagitis; Z88.2 Allergy status to sulfonamides; Z88.8 Allergy status to other drugs, medicaments and biological substances
CPT/HCPCS: 36415; 43239; 71260; 74177; 76705; 78227; 80053; 81001; 81025; 83518; 83690; 84132; 85025; 87070; 87086; 87400; 87633; 87635; 88305; 88312; 99284; A9537; G0378; J2250; J2270; J2405; J2765; J3010; J3480; J7030; Q9967

== ENCOUNTER → 2019-06-21 | Day surgery (SDC) | payer OTHER ==
[2019-06-18 12:26] LABS: BASOPHILS % 0.4 % (0.0-1.0); EOSINOPHILS # (AUTO) 0.1 (0.0-0.4); EOSINOPHILS % 1.5 % (0.0-6.0); HEMATOCRIT 39.1 % (34.2-44.1); LYMPHOCYTES # (AUTO) 2.3 (1.0-3.2); LYMPHOCYTES % 29.3 % (18.0-39.1); MEAN CORPUSCULAR HEMOGLOBIN 28.4 pg (28-32); MEAN CORPUSCULAR HGB CONC 33.2 g/dL (31-35); MEAN CORPUSCULAR VOLUME 85.6 fL (81-99); MONOCYTES # (AUTO) 0.4 (0.2-0.8); MONOCYTES % 5.1 % (4.4-11.3); NEUTROPHILS # (AUTO) 4.9 (2.1-6.9); NEUTROPHILS % 63.4 % (38.7-80.0); PLATELET COUNT 285 x10e3/uL (140-360); RED BLOOD COUNT 4.57 x10e6/uL (3.6-5.1); RED CELL DISTRIBUTION WIDTH 12.6 % (11.7-14.4)
[2019-06-18 12:32] LABS: CLARITY,URINE SL CLOUDY (CLEAR); COLOR,URINE YELLOW (YELLOW); KETONES,URINE TRACE (NEGATIVE); LEUKOCYTE ESTERASE ,URINE TRACE (NEGATIVE); NITRITE,URINE NEGATIVE (NEGATIVE); PROTEIN,URINE DIPSTICK NEGATIVE (NEGATIVE)
[2019-06-18 12:33] LABS: BILIRUBIN,URINE NEGATIVE (NEGATIVE); URINE UROBILINOGEN 0.2 mg/dL (0.2 - 1)
[2019-06-18 13:00] LABS: ALANINE AMINOTRANSFERASE 9 IU/L (0-55); ALBUMIN 3.5 g/dL (3.5-5.0); ALBUMIN/GLOBULIN RATIO 0.9 (0.8-2.0); ALKALINE PHOSPHATASE 58 IU/L (40-150); ANION GAP 12.4 mmol/L (8-16); BLOOD UREA NITROGEN 9 mg/dL (7-26); BUN/CREATININE RATIO 12 (6-25); CALCIUM 9.4 mg/dL (8.4-10.2); CARBON DIOXIDE 23 mmol/L (22-29); CHLORIDE 108 mmol/L (98-107); CREATININE, SERUM 0.75 mg/dL (0.57-1.11); EST GLOMERULAR FILTRATION RATE > 60 ML/MIN (60-); GLUCOSE 89 mg/dL (74-118); POTASSIUM 4.4 mmol/L (3.5-5.1); SODIUM 139 mmol/L (136-145)
[~2019-06-21] MED LIST changes: +ACETAMINOPHEN 1000 MG/100 ML 100 ML IV ONE; +BUPIVACAINE 0.5%/EPI 30 ML SDV INJ ONE; +DEXAMETHASONE SOD PHOS INJ 4 MG/ML VIAL ONE; +FENTANYL CITRATE/PF 100MCG/2 ML INJ ONE; +GLYCOPYRROLATE INJ 0.2 MG/ML VIAL ONE; +HYDROCODONE/APAP 7.5MG-325MG 1 EA TAB ONE; +LIDOCAINE HCL 2% LOCAL INJ 5 ML SDV VIAL INJ ONE; +MIDAZOLAM HCL 2 MG/2 ML VIAL ONE; +NEOSTIGMINE 1 MG/ML 10ML VIAL ONE; +ONDANSETRON HCL INJ 2MG/ML 2ML 2 MG/ML VIAL ONE; +PANTOPRAZOLE SO40 MG PO; +PROPOFOL IV EMULSION 10 MG/ML 20 ML VIAL ONE; +ROCURONIUM BROMIDE 10 MG/ML 5ML VIAL IV ONE; +SEVOFLURANE INHAL SOLN 250 ML PEN BTL ONE; +[UNRECOGNIZED DRUG - OTHER] PO
--- OUTSIDE RECORDS SUMMARY | 2019-06-21 07:22 | XMS REPORT | Summary of Care ---
Author Author SARMAD KYLE APRN Organization Unknown Address Unknown Phone Unavailable Care Team Providers Care Costume Shop Coordinator Name Role Phone FABIAN PITT M.D. Unavailable Unavailable RAND KYLE APRN Unavailable Unavailable FABIAN PITT MD Unavailable Unavailable Unavailable Functional Status Name Dates Details Functional status health issues are not documented Status: Name Dates Details Cognitive status health issues are not d ocumented Status: Problems Name Dates Details Encounter to establish care (V65.8, Z76. 89) Status: Active Screening for diabetes mellitus (V77.1, Z13.1) Status: Active Screening for thyroid disorder (V77.0, Z 13.29) Status: Active Flu vaccine need (V04.81, Z23) Status: Active Overweight (BMI 25.0-29.9) Status: Active Depression (311, F32.9) Status: Active Oligomenorrhea (626.1, N91.5) Status: Active PCOS (polycystic ovarian syndrome) (256. 4, E28.2) Status: Active Medications Name Dates Details medroxyPROGESTERone Acetate 10 MG Oral T ablet TAKE 1 tab every day for 10 days. Quantity: 10 YOANDY Junior, FABIAN * Start : 29-Jan-2019 Active Tri-Legest Fe 1-20/1-30/1-35 MG-MCG Oral Tablet TAKE 1 TABLET DAILY DIRECTED. * Quantity: 3 Refills: 1 RAND KYLE APRN * Start : 29-Jan-2019 Active 28 Tablet Pack Allergies and Adverse Reactions Name Dates Details Bactrim TABS (Allergy) Status: Active Past Medical History Name Dates Details History of PCOS (V13.29, Z87.42) Status: Resolved Procedures Procedure Dates Details History of Tympanoplasty Completed Immunization Name Dates Details Fluzone Quadrivalent 0.5 ML Intramuscula r Suspension Lot #: [id number] on: 09-Jan-2017 Family History Name Dates Details Family history of diabetes mellitus (V18 .0, Z83.3) Status: Active Family history of hypertension (V17.49, Z82.49) Status: Active Name Dates Details Family history of diabetes mellitus (V18 .0, Z83.3) Status: Active Social History Name Dates Details - Status: Name Dates Details Never smoked tobacco (finding) Vital Signs Date Test Result Details No Known Vitals to report Results Date Description Value Details Results not documented Plan of Care Name Dates Details Planned Observations Planned Goals not documented Planned Encounters Appointment; FABIAN PITT M.D. On: 02-Jul-2019 15:00 Interventions Provided Medication Changes* Tri-Legest Fe 1-20/1-30/1-35 MG-MCG Oral Tablet - Renew Instructions Name Dates Details Instructions not documented Encounters Appointment; FABIAN PITT M.D. Encounter Diagnosis: Problem not documented On: 25-Oct-2017 14:30 Appointment; FABIAN PITT M.D. Encounter Diagnosis: Problem not documented On: 27-Dec-2017 10:00 Appointment; FABIAN PITT M.D. Encounter Diagnosis: Problem not documented On: 29-Jan-2019 13:45 Appointment; FABIAN PITT M.D. Encounter Diagnosis: Problem not documented On: 16-Apr-2019 15:00
[2019-06-21 12:45] VITALS: BP 120/78
--- NOTE | 2019-06-21 15:58 | Operative Report ---
DATE OF PROCEDURE: 06/21/2019 SURGEON: Ponce Cervantes MD PREOPERATIVE DIAGNOSIS: Biliary dyskinesia. POSTOPERATIVE DIAGNOSIS: Biliary dyskinesia. OPERATION PERFORMED: Laparoscopic cholecystectomy. ASSISTANTS: 1. Dr. Jose Cervantes. 2. BRAXTON Le. ANESTHESIA: General. COMPLICATIONS: None. ESTIMATED BLOOD LOSS: Minimal. DESCRIPTION OF PROCEDURE: With the patient lying in bed in the supine position under good general endotracheal anesthesia, the abdomen was prepped with Betadine solution and draped in the usual manner. A Veress needle was introduced into the umbilicus and pneumoperitoneum was established without any difficulty. An 11 mm trocar was placed into the umbilicus and a 10 mm video laparoscope was placed into the intra-abdominal cavity. Under direct vision, three 5 mm trocars were placed in the right subcostal region. Video laparoscopy at this point revealed a gallbladder that was somewhat boggy and distended. The liver appeared to be within normal limits. All the bowel could be visualized seem to be also within normal limits. The peritoneum overlying the neck of the gallbladder was then opened and the cystic duct was identified. The cystic duct was followed to its junction with the common duct. The cystic duct was then circumferentially dissected away from the common duct, doubly clipped and divided. The cystic artery was similarly doubly clipped and divided. The gallbladder was then slowly and carefully taken off the liver bed using the cautery scissors and perfect hemostasis was ascertained. The gallbladder was then grasped through the umbilical port and removed without any difficulty. Video laparoscopy was then again carried out. The liver bed was found to be perfectly dry. All the excess fluid was aspirated. The pneumoperitoneum was evacuated and all the trocars were removed under direct vision. The midline fascia at the umbilicus was then closed with a [id number] of 0 Vicryl. All layers were infiltrated on the way out with solution of 0.25% Marcaine. Subcutaneous tissue was approximated with 3-0 Vicryl and the skin was closed with subcuticular 5-0 Vicryl. Benzoin, Steri-Strips, and Band-Aids were applied. The sponge, lap, and needle count was correct. The patient tolerated the procedure well and returned to the recovery room in stable condition. MD SANIYA Clayton/CECILE /[id number]
== END | disposition home or self-care (01) ==
LOC: OR 07:00
PROVIDERS: ATTEND Surgery
DX: K81.1 Chronic cholecystitis (principal); F32.9 Major depressive disorder, single episode, unspecified; Z01.812 Encounter for preprocedural laboratory examination; Z11.59 Encounter for screening for other viral diseases
CPT/HCPCS: 36415; 47562; 80053; 81003; 81025; 85025; 87635; 88304; C1766; J0131; J1100; J2001; J2250; J2405; J2704; J2710; J3010

== ENCOUNTER → 2020-06-01 | Outpatient (CLI) | payer OTHER ==
[~2020-06-01] MED LIST changes: -ACETAMINOPHEN 1000 MG/100 ML 100 ML IV ONE; -BUPIVACAINE 0.5%/EPI 30 ML SDV INJ ONE; -DEXAMETHASONE SOD PHOS INJ 4 MG/ML VIAL ONE; -FENTANYL CITRATE/PF 100MCG/2 ML INJ ONE; -GLYCOPYRROLATE INJ 0.2 MG/ML VIAL ONE; -HYDROCODONE/APAP 7.5MG-325MG 1 EA TAB ONE; -LIDOCAINE HCL 2% LOCAL INJ 5 ML SDV VIAL INJ ONE; -MIDAZOLAM HCL 2 MG/2 ML VIAL ONE; -NEOSTIGMINE 1 MG/ML 10ML VIAL ONE; -ONDANSETRON HCL INJ 2MG/ML 2ML 2 MG/ML VIAL ONE; -PROPOFOL IV EMULSION 10 MG/ML 20 ML VIAL ONE; -ROCURONIUM BROMIDE 10 MG/ML 5ML VIAL IV ONE; -SEVOFLURANE INHAL SOLN 250 ML PEN BTL ONE
== END ==
LOC: RAD 09:41
PROVIDERS: ATTEND Internal Medicine Gastroenterology
DX: K59.09 Other constipation (principal)
CPT/HCPCS: 74018; 81025

== ENCOUNTER 2021-04-02 16:49 | Emergency (ER) | payer OTHER ==
[~2021-04-02] VITALS: Ht 175.3 cm; Wt 95.3 kg
[2021-04-02] MEDS ORDERED: ANAPROX DS550 MG PO (17:24)
== END 2021-04-02 17:43 | disposition home or self-care (01) ==
LOC: ER 16:54
DX: S73.192A Other sprain of left hip, initial encounter (principal); X50.0XXA Overexertion from strenuous movement or load, initial encounter; X50.9XXA Other and unspecified overexertion or strenuous movements or postures, initial encounter; Y92.89 Other specified places as the place of occurrence of the external cause; R51.9 Headache, unspecified
CPT/HCPCS: 99282

== ENCOUNTER → 2021-06-24 | Outpatient (CLI) | payer OTHER ==
[~2021-06-24] MED LIST changes: +ANAPROX DS550 MG PO; +DIATRIZOATE MEGL/DIATRIZOA SOD 30 ML BTL PO ONE; +IOPAMIDOL 370 MG/ML 100 ML INFUS..BTL INJ ONE
== END ==
LOC: CT 15:42
PROVIDERS: ATTEND Internal Medicine Gastroenterology
DX: R10.30 Lower abdominal pain, unspecified (principal); R10.10 Upper abdominal pain, unspecified
CPT/HCPCS: 74177; 81025; Q9967

== ENCOUNTER 2022-08-07 09:14 | Emergency (ER) | payer OTHER ==
[~2022-08-07] VITALS: Ht 175.3 cm; Wt 102.1 kg
[~2022-08-07 09:14] MED LIST changes: -DIATRIZOATE MEGL/DIATRIZOA SOD 30 ML BTL PO ONE; +DOCUSATE SODIU100 MG PO; -IOPAMIDOL 370 MG/ML 100 ML INFUS..BTL INJ ONE; +LANOXIN250 MCG PO; +LEVOTHYROXINE50 MCG PO; +QUETIAPINE FUM100 MG PO; +SERTRALINE HCL100 MG PO; +SPIRONOLACTONE25 MG PO; +ZYRTEC10 MG PO
[2022-08-07] MEDS ORDERED: SODIUM CHLORIDE 0.9% 1000ML 1,000 ML IV STA (09:44)
[2022-08-07] MEDS ORDERED: ONDANSETRON HCL INJ 2MG/ML 2ML 2 MG/ML VIAL IV PRN (09:45)
[2022-08-07] MEDS ORDERED: DICYCLOMINE HCL 20 MG/2 ML VIAL IM ONE (09:45)
[2022-08-07 09:57] LABS: BASOPHILS % 0.1 % (0.0-1.0); EOSINOPHILS % 0.2 % (0.0-6.0); HEMOGLOBIN 14.2 g/dL (12.0-16.0); LYMPHOCYTES # (AUTO) 1.3 (1.0-3.2); LYMPHOCYTES % 9.5 % (18.0-39.1); MEAN CORPUSCULAR HEMOGLOBIN 28.6 pg (28-32); MEAN CORPUSCULAR HGB CONC 33.8 g/dL (31-35); MEAN CORPUSCULAR VOLUME 84.5 fL (81-99); MONOCYTES # (AUTO) 0.4 (0.2-0.8); NEUTROPHILS # (AUTO) 12.3 (2.1-6.9); NEUTROPHILS % 86.8 % (38.7-80.0); PLATELET COUNT 343 x10e3/uL (140-360); RED BLOOD COUNT 4.97 x10e6/uL (3.6-5.1); RED CELL DISTRIBUTION WIDTH 13.2 % (11.7-14.4)
[2022-08-07 10:17] LABS: ALBUMIN 4.4 g/dL (3.5-5.0); ALBUMIN/GLOBULIN RATIO 1.2 (0.8-2.0); ANION GAP 17.6 mmol/L (8-16); CALCIUM 9.6 mg/dL (8.4-10.2); CREATININE, SERUM 0.75 mg/dL (0.57-1.11); POTASSIUM 3.6 mmol/L (3.5-5.1)
[2022-08-07 11:13] LABS: CLARITY,URINE CLEAR (CLEAR); COLOR,URINE YELLOW (YELLOW); LEUKOCYTE ESTERASE ,URINE NEGATIVE (NEGATIVE); NITRITE,URINE NEGATIVE (NEGATIVE)
[2022-08-07 11:14] LABS: KETONES,URINE 1+ (NEGATIVE); PROTEIN,URINE DIPSTICK TRACE (NEGATIVE); URINE UROBILINOGEN 0.2 mg/dL (0.2 - 1)
[2022-08-07 11:29] LABS: BACTERIA,URINE FEW /HPF; EPITHELIAL CELLS,URINE MODERATE /LPF; MUCUS,URINE FEW (RARE); WBC,URINE (MAN) 0-5 /HPF (0-5)
[2022-08-07] MEDS ORDERED: ONDANSETRON ODT4 MG PO (11:35)
[2022-08-07] MEDS ORDERED: DICYCLOMINE HCL20 MG PO (11:35)
[2022-08-07 11:48] VITALS: BP 126/61; PULSE 90; RESP 18; O2SAT 100
== END 2022-08-07 11:48 | disposition home or self-care (01) ==
LOC: ER 09:19
DX: R11.2 Nausea with vomiting, unspecified (principal); K52.9 Noninfective gastroenteritis and colitis, unspecified; R10.30 Lower abdominal pain, unspecified
CPT/HCPCS: 36415; 80053; 81001; 83690; 84702; 85025; 99283; J0500; J2405; J7030

== ENCOUNTER → 2023-10-04 | Outpatient (REF) | payer OTHER ==
[~2023-10-04] MED LIST changes: +DICYCLOMINE HCL20 MG PO; +ONDANSETRON ODT4 MG PO
== END ==
LOC: DX 10:56
PROVIDERS: ATTEND Internal Medicine Rheumatology
DX: M84.674A Pathological fracture in other disease, right foot, initial encounter for fracture (principal)
CPT/HCPCS: 77080

== ENCOUNTER 2024-07-23 15:40 | Emergency (ER) | payer BC ==
[~2024-07-23] VITALS: Ht 175.3 cm; Wt 102.1 kg
[2024-07-23 15:50] VITALS: RESP 18; TEMP 97.8
[2024-07-23] MEDS: SODIUM CHLORIDE 0.9% 1000ML 1,000 ML IV STA (16:47)
[2024-07-23 16:48] LABS: BASOPHILS % 0.2 % (0.0-1.0); EOSINOPHILS # (AUTO) 0.1 (0.0-0.4); EOSINOPHILS % 0.4 % (0.0-6.0); HEMOGLOBIN 13.7 g/dL (12.0-16.0); LYMPHOCYTES # (AUTO) 2.3 (1.0-3.2); LYMPHOCYTES % 19.8 % (18.0-39.1); MEAN CORPUSCULAR HEMOGLOBIN 29.6 pg (28-32); MEAN CORPUSCULAR HGB CONC 33.4 g/dL (31-35); MEAN CORPUSCULAR VOLUME 88.6 fL (81-99); MONOCYTES # (AUTO) 0.5 (0.2-0.8); MONOCYTES % 4.6 % (4.4-11.3); NEUTROPHILS # (AUTO) 8.6 (2.1-6.9); NEUTROPHILS % 74.7 % (38.7-80.0); PLATELET COUNT 297 x10e3/uL (140-360); RED BLOOD COUNT 4.63 x10e6/uL (3.6-5.1); RED CELL DISTRIBUTION WIDTH 12.7 % (11.7-14.4); WHITE BLOOD COUNT 11.55 x10e3/uL (4.8-10.8)
[2024-07-23 16:51] LABS: CLARITY,URINE SL CLOUDY (CLEAR); COLOR,URINE YELLOW (YELLOW); GLUCOSE, URINE NEGATIVE (NEGATIVE); KETONES,URINE 2+ (NEGATIVE); LEUKOCYTE ESTERASE ,URINE SMALL (NEGATIVE); NITRITE,URINE NEGATIVE (NEGATIVE); PH,URINE 6 (5 - 7); PROTEIN,URINE DIPSTICK NEGATIVE (NEGATIVE)
[2024-07-23 16:52] LABS: AMPHETAMINES SCREEN,URINE NEGATIVE (NEGATIVE); BENZODIAZEPINES SCREEN,URINE NEGATIVE (NEGATIVE); BILIRUBIN,URINE SMALL (NEGATIVE); CANNABINOIDS SCREEN,URINE NEGATIVE (NEGATIVE); COCAINE SCREEN,URINE NEGATIVE (NEGATIVE); METHADONE SCREEN, URINE NEGATIVE (NEGATIVE); OPIATES SCREEN,URINE NEGATIVE (NEGATIVE); PHENCYCLIDINE SCREEN,URINE NEGATIVE (NEGATIVE); URINE UROBILINOGEN 1 mg/dL (0.2 - 1)
[2024-07-23] MEDS: DIPHENHYDRAMINE HCL INJ 50 MG/ML VIAL IV ONE (17:00)
[2024-07-23 17:03] LABS: ALANINE AMINOTRANSFERASE 24 IU/L (0-55); ALBUMIN/GLOBULIN RATIO 1.1 (0.8-2.0); ALKALINE PHOSPHATASE 59 IU/L (40-150); ANION GAP 15.8 mmol/L (8-16); BILIRUBIN,TOTAL 0.6 mg/dL (0.2-1.2); BLOOD UREA NITROGEN 10 mg/dL (7-26); BUN/CREATININE RATIO 12 (6-25); CALCIUM 9.2 mg/dL (8.4-10.2); CARBON DIOXIDE 24 mmol/L (22-29); CHLORIDE 104 mmol/L (98-107); CREATININE, SERUM 0.85 mg/dL (0.57-1.11); EST GLOMERULAR FILTRATION RATE 97 ML/MIN (>=60); GLUCOSE 110 mg/dL (74-118); POTASSIUM 3.8 mmol/L (3.5-5.1); SODIUM 140 mmol/L (136-145); TOTAL PROTEIN 7.5 g/dL (6.5-8.1)
[2024-07-23 17:07] LABS: BACTERIA,URINE MANY /HPF; EPITHELIAL CELLS,URINE MODERATE /LPF; TRANSITIONAL EPI CELLS,URINE MODERATE
[2024-07-23] MEDS: PROMETHAZINE 12.5MG/ NACL 0.9% 12.5 MG/50 ML BAG IV ONE ×2 (17:25→17:45)
[2024-07-23 18:00] VITALS: PULSE 73
[2024-07-23] MEDS ORDERED: IOPAMIDOL 370 MG/ML 100 ML INFUS..BTL INJ ONE (18:02)
[2024-07-23] MEDS ORDERED: ONDANSETRON ODT4 MG PO (19:45)
[2024-07-23] MEDS ORDERED: CEFDINIR300 MG PO (19:45)
[2024-07-23 21:07] VITALS: BP 102/61; PULSE 78; RESP 17; TEMP 97.9; O2SAT 99
== END 2024-07-23 19:58 | disposition home or self-care (01) ==
LOC: ER 16:11
DX: R11.2 Nausea with vomiting, unspecified (principal); N39.0 Urinary tract infection, site not specified; E03.9 Hypothyroidism, unspecified; K21.9 Gastro-esophageal reflux disease without esophagitis; L40.50 Arthropathic psoriasis, unspecified; F84.0 Autistic disorder; F41.9 Anxiety disorder, unspecified; F32.A Depression, unspecified
CPT/HCPCS: 36415; 71045; 74177; 80053; 80307; 81001; 83735; 84702; 85025; 99284; J0696; J1200; J2470; J2550; J7030; Q9967